=== PATIENT | male | born 1995 | race Two or more races ===

== ENCOUNTER 2018-11-02 17:14 | Emergency (ER) | payer SELFPAY ==
--- NOTE | 2018-11-02 17:34 | ED ---
Lower Extremity - HPI Summary HPI Summary: Patient complains of persistent right knee pain 1 month status post being kicked in the knee by a cow. Patient is ambulatory, rates pain at worst 5/10, worse with full extension. Patient has taken Advil intermittently, has not used ice. Denies swelling, erythema, ecchymosis, fever. Denies medical history. - History of Current Complaint Chief Complaint: EDExtremityLower Stated Complaint: RT KNEE INJURY PER PT Time Seen by Provider: 11/02/18 17:30 Hx Obtained From: Patient Mechanism Of Injury: Blunt Trauma Onset of Pain: Immediate Onset/Duration: Weeks Severity Initially: Mild Severity Currently: Mild Pain Intensity: 3 Pain Scale Used: 0-10 Numeric Timing: Intermittent Location: Is Discrete @ Character Of Pain: Dull, Aching Associated Signs And Symptoms: Positive: Knee Pain Aggravating Factor(s): Standing, Ambulation Alleviating Factor(s): Rest, Elevation Able to Bear Weight: Yes - Allergies/Home Medications Allergies/Adverse Reactions: Allergies Allergy/AdvReac Type Severity Reaction Status Date / Time No Known Allergies Allergy Verified 11/02/18 17:19 PMH/Surg Hx/FS Hx/Imm Hx Endocrine/Hematology History: Denies: Hx Anticoagulant Therapy Cardiovascular History: Denies: Hx Pacemaker/ICD History: Denies: Hx Dialysis Sensory History: Denies: Hx Legally Blind Opthamlomology History: Denies: Hx Eye Prosthesis EENT History: Denies: Hx Deafness Neurological History: Denies: Hx Dementia Infectious Disease History: No Infectious Disease History: Denies: Traveled Outside the [place] in Last 30 Days - Family History Known Family History: Positive: Non-Contributory - Social History Alcohol Use: None Substance Use Type: Reports: None Smoking Status (MU): Never Smoked Tobacco Review of Systems Constitutional: Negative Eyes: Negative ENT: Negative Cardiovascular: Negative Respiratory: Negative Gastrointestinal: Negative Genitourinary: Negative Musculoskeletal: Other Skin: Negative Neurological: Negative Psychological: Normal All Other Systems Reviewed And Are Negative: Yes Physical Exam - Summary Physical Exam Summary: No erythema, ecchymosis, deformity, swelling noted to right knee. No effusion. PMS intact distally. Full range of motion of right knee. No pain with palpation of right knee. Calf soft nontender. Triage Information Reviewed: Yes Vital Signs On Initial Exam: Initial Vitals Temp Pulse Resp BP Pulse Ox 97.7 F 45 18 136/74 100 11/02/18 17:15 11/02/18 17:15 11/02/18 17:15 11/02/18 17:15 11/02/18 17:15 Vital Signs Reviewed: Yes Appearance: Positive: Well-Appearing Skin: Positive: Warm Head/Face: Positive: Normal Head/Face Inspection Eyes: Positive: Normal Neck: Positive: Supple Respiratory/Lung Sounds: Positive: Clear to Auscultation Cardiovascular: Positive: Normal Abdomen Description: Positive: Nontender Musculoskeletal: Positive: Normal Neurological: Positive: Normal Psychiatric: Positive: Normal AVPU Assessment: Alert - Reynaldo Coma Scale Best Eye Response: 4 - Spontaneous Best Motor Response: 6 - Obeys Commands Best Verbal Response: 5 - Oriented Coma Scale Total: 15 Diagnostics - Vital Signs Vital Signs Temp Pulse Resp BP Pulse Ox 11/02/18 17:15 97.7 F 45 18 136/74 100 - Laboratory Lab Statement: Any lab studies that have been ordered have been reviewed, and results considered in the medical decision making process. Lower Extremity Course/Dx - Course Course Of Treatment: Patient complains of persistent right knee pain 1 month status post being kicked in the knee by a cow. Patient is ambulatory, rates pain at worst 5/10, worse with full extension. Patient has taken Advil intermittently, has not used ice. Denies swelling, erythema, ecchymosis, fever. Denies medical history. Vital signs within normal limits. X-ray negative. Patient advised trial of icing and ibuprofen for 3 days. Advised to follow-up with orthopedics if symptoms persist. - Diagnoses Provider Diagnoses: Knee joint injury Discharge - Sign-Out/Discharge Documenting (check all that apply): Patient Departure Patient Received Moderate/Deep Sedation with Procedure: No - Discharge Plan Condition: Stable Disposition: HOME Patient Education Materials: Knee Pain (ED) Referrals: Quentin Watson MD [Medical Doctor] - Additional Instructions: Rest right knee. Ice 15 minutes at a time. Alternate ibuprofen 600 mg with Tylenol 650 mg every 3 hours for 3 days. If ear pain continues more than 1 week follow-up with orthopedics Dr. Watson for further evaluation. - Billing Disposition and Condition Condition: STABLE Disposition: Home - Attestation Statements Provider Attestation: I am administratively signing this document. I was available for consultation for this patient. I did not evaluate the patient, did not have a doctor/patient relationship with the patient, or participate in any medical decision making or disposition decisions unless I am specifically named in the chart as having consulted on the patient. If I have consulted on the patient, please see my own ED note on the patient encounter. Obed Victor MD
[2018-11-02 18:50] VITALS: BP 135/80
== END 2018-11-02 18:49 | disposition home or self-care (01) ==
LOC: ED 17:14
DX: S89.91XA Unspecified injury of right lower leg, initial encounter (principal); M25.461 Effusion, right knee; W55.22XA Struck by cow, initial encounter; Y92.9 Unspecified place or not applicable
CPT/HCPCS: 99282